=== PATIENT | female | born 1980 | race Hispanic/Latino ===

== ENCOUNTER 2022-05-30 08:26 | Emergency (ER) | payer SELFPAY ==
[2022-05-30] MEDS ORDERED: Ketorolac Tromethamine 30 MG/ML VIAL ONE (09:32)
== END 2022-05-30 10:12 | disposition home or self-care (01) ==
LOC: CSHERS 08:26
DX: M62.830 Muscle spasm of back (principal)
CPT/HCPCS: 72100; 96372; J1885